=== PATIENT | male | born 1940 | race Caucasian/White ===

== ENCOUNTER → 2017-02-10 | Outpatient (CLI) | payer OTHER ==
[~2017-02-10] MED LIST: ASPCH81; CLOP1TAB15 PO; CRS20 PO; ISOS60TA25 PO; LISI-725 PO; METO50TA16 PO
[2017-02-10 12:31] LABS: BASO % 0.9 %; BASO ABS # 0.04 K/uL (0-0.2); COMPLETE YES; EOS % 3.2 %; HEMATOCRIT 43.7 % (42-52); LYMPH % 23.4 %; LYMPH ABS # 1.01 K/uL (1.2-3.4); MEAN CELL VOLUME 94.6 fL (80-100); MEAN CORPUSCULAR HEMOGLOBIN 32.7 pg (25-34); MEAN CORPUSCULAR HGB CONC 34.6 g/dl (32-36); MEAN PLATELET VOLUME 9.5 fL (7.4-10.4); MONO % 10.9 %; NEUT % 61.6 %; PLATELET COUNT 155 K/uL (130-400); RED BLOOD COUNT 4.62 M/uL (4.7-6.1); WHITE BLOOD COUNT 4.32 K/uL (4.8-10.8)
[2017-02-10 12:55] LABS: ALT/SGPT 43 U/L (12-78); BLOOD UREA NITROGEN 15 mg/dl (7-18); BUN/CREATININE RATIO 14.8 (10-20); CALCIUM 9.3 mg/dl (8.5-10.1); CARBON DIOXIDE 28 mmol/L (21-32); CHLORIDE 106 mmol/L (98-107); CHOLESTEROL 133 mg/dl (0-200); GLUCOSE 103 mg/dl (70-99); POTASSIUM 4.5 mmol/L (3.5-5.1); SODIUM 141 mmol/L (136-145); TRIGLYCERIDES 111 mg/dl (0-150); VERY LOW DENSITY LIPOPROT CALC 22 mg/dl
[2017-02-10 12:59] LABS: ALKALINE PHOSPHATASE 70 U/L (45-117); AST/SGOT 27 U/L (15-37); CHOLESTEROL/HDL RATIO 2.7; HDL CHOLESTEROL 49 mg/dl; LDL CHOLESTEROL CALCULATED 62 mg/dl
[2017-02-10 13:14] LABS: ESTIMATED AVERAGE GLUCOSE 123 mg/dl; HA1C FLAG Normal (Normal)
== END ==
LOC: C.LABPVFM 09:34
PROVIDERS: ATTEND Family Medicine
DX: I10 Essential (primary) hypertension (principal); E78.5 Hyperlipidemia, unspecified; R73.01 Impaired fasting glucose; I25.10 Atherosclerotic heart disease of native coronary artery without angina pectoris; C61 Malignant neoplasm of prostate

== ENCOUNTER → 2017-03-05 | Outpatient (CLI) | payer OTHER ==
--- NOTE | 2017-03-05 10:37 | DIAGNOSTIC IMAGING REPORT ---
KUB CLINICAL HISTORY: N20.1 Ureteral [id number] Prostate [id number] [id number] COMPARISON STUDY: 04/11/2014 FINDINGS: There is no pathologic bowel dilatation. There are faint calcifications project over the left renal shadow suspicious for calculi. Pelvic basin calcifications remain unchanged the prior study and likely represent phleboliths. IMPRESSION: 1. Left-sided nephrolithiasis 2. No evidence of pathologic bowel dilatation Electronically signed by: Riaz Muñoz M.D. 03/05/2017 10:36 AM Dictated Date/Time: 03/05/2017 10:35 AM
== END | disposition home or self-care (01) ==
LOC: C.RAD 09:59
PROVIDERS: ATTEND Urology
DX: N20.0 Calculus of kidney (principal); N20.1 Calculus of ureter; C61 Malignant neoplasm of prostate

== ENCOUNTER → 2018-01-27 | Outpatient (CLI) | payer OTHER ==
[2018-01-27 13:07] LABS: ALBUMIN 3.9 gm/dl (3.4-5.0); ALT/SGPT 70 U/L (12-78); AST/SGOT 39 U/L (15-37); BLOOD UREA NITROGEN 17 mg/dl (7-18); CALCIUM 9.2 mg/dl (8.5-10.1); CARBON DIOXIDE 28 mmol/L (21-32); CHOLESTEROL 129 mg/dl (0-200); CREATININE 1.05 mg/dl (0.60-1.40); GLUCOSE 103 mg/dl (70-99); POTASSIUM 4.3 mmol/L (3.5-5.1); SODIUM 139 mmol/L (136-145)
[2018-01-27 13:10] LABS: ALKALINE PHOSPHATASE 66 U/L (45-117); LDL CHOLESTEROL CALCULATED 59 mg/dl; TOTAL PROTEIN 7.9 gm/dl (6.4-8.2)
[2018-01-27 13:44] LABS: HEMOGLOBIN A1C 6.1 % (4.5-5.6)
== END | disposition home or self-care (01) ==
LOC: C.LABPVFM 09:15
PROVIDERS: ATTEND Family Medicine
DX: Z01.818 Encounter for other preprocedural examination (principal); I10 Essential (primary) hypertension; E78.5 Hyperlipidemia, unspecified; R73.01 Impaired fasting glucose

== ENCOUNTER → 2018-07-21 | Outpatient (CLI) | payer OTHER ==
[2018-07-21 12:53] LABS: BASO % 0.5 %; BASO ABS # 0.02 K/uL (0-0.2); EOS % 2.5 %; HEMATOCRIT 41.9 % (42-52); HEMOGLOBIN 14.1 g/dL (14.0-18.0); IG# 0.01 K/uL (0.00-0.02); LYMPH % 27.6 %; LYMPH ABS # 1.09 K/uL (1.2-3.4); MEAN CELL VOLUME 96.5 fL (80-100); MEAN CORPUSCULAR HEMOGLOBIN 32.5 pg (25-34); MEAN CORPUSCULAR HGB CONC 33.7 g/dl (32-36); MEAN PLATELET VOLUME 10.1 fL (7.4-10.4); MONO % 9.6 %; MONO ABS # 0.38 K/uL (0.11-0.59); NEUT % 59.5 %; NEUT ABS # 2.35 K/uL (1.4-6.5); PLATELET COUNT 156 K/uL (130-400); RED CELL DISTRIBUTION WIDTH CV 13.4 % (11.5-14.5); RED CELL DISTRIBUTION WIDTH SD 47.8 fL (36.4-46.3); WHITE BLOOD COUNT 3.95 K/uL (4.8-10.8)
[2018-07-21 13:22] LABS: ALBUMIN 3.8 gm/dl (3.4-5.0); ALKALINE PHOSPHATASE 61 U/L (45-117); ALT/SGPT 40 U/L (12-78); AST/SGOT 29 U/L (15-37); BLOOD UREA NITROGEN 13 mg/dl (7-18); CALCIUM 9.3 mg/dl (8.5-10.1); CARBON DIOXIDE 28 mmol/L (21-32); CHOLESTEROL 118 mg/dl (0-200); CREATININE 1.03 mg/dl (0.60-1.40); GLUCOSE 106 mg/dl (70-99); LDL CHOLESTEROL CALCULATED 55 mg/dl; POTASSIUM 4.4 mmol/L (3.5-5.1); SODIUM 140 mmol/L (136-145); TOTAL PROTEIN 7.6 gm/dl (6.4-8.2)
== END | disposition home or self-care (01) ==
LOC: C.LABPVFM 09:14
PROVIDERS: ATTEND Family Medicine
DX: I10 Essential (primary) hypertension (principal); E78.5 Hyperlipidemia, unspecified; R73.01 Impaired fasting glucose; G62.9 Polyneuropathy, unspecified

== ENCOUNTER 2024-02-13 11:46 | Inpatient (IN) ==
[2024-02-13 12:33] LABS: Basophils # (auto) 0.04 K/uL (0.00-0.20); Basophils % (auto) 0.8 %; Eosinophils # (auto) 0.11 K/uL (0.00-0.50); Eosinophils % (auto) 2.1 %; Hematocrit (blood only) 38.4 % (42.0-52.0); Immature Granulocytes # (auto) 0.01 K/uL (0.01-0.20); Immature Granulocytes % (auto) 0.2 %; Lymphocytes # (auto) 0.94 K/uL (1.20-3.40); Lymphocytes % (auto) 17.9 %; Mean Corpuscular Hemoglobin 31.4 pg (25.0-34.0); Mean Corpuscular Hgb Conc 33.9 g/dL (32.0-36.0); Mean Corpuscular Volume 92.8 fL (80.0-100.0); Mean Platelet Volume 9.7 fL (9.4-12.4); Monocytes # (auto) 0.37 K/uL (0.11-0.59); Neutrophils # (auto) 3.78 K/uL (1.40-6.50); Platelet Count 163 K/uL (130-400); RDW Coefficient of Variation 13.4 % (11.5-14.5); RDW Standard Deviation 45.6 fL (36.4-46.3); Red Blood Count 4.14 M/uL (4.70-6.10); White Blood Count 5.25 K/ul (4.8-10.8)
[2024-02-13 12:47] LABS: Albumin Globulin Ratio 1.4 (0.9-2); Albumin Level 4.2 gm/dl (3.4-5.0); Bilirubin,Total 0.5 mg/dl (0.2-1.0); Calcium 9.4 mg/dl (8.6-10.3); Est GFR (African American) 84.9 ml/min; Est GFR (Non-African American) 73.2 ml/min; Globulin 2.9 gm/dl (2.5-4.0); Potassium 4.6 mmol/L (3.5-5.1); Total Protein 7.1 gm/dl (6.0-8.3)
--- NOTE | 2024-02-13 12:47 | Emergency Department Note ---
Impression & Plan Complete heart block, PADRON (dyspnea on exertion), Elevated troponin ED Provider Note NAME: NANCY JONES AGE: 83 SEX: M : 1940 ARRIVES VIA: Walk-In INFORMANT: [Patient] ED PROVIDER(S): [Cooper Monahan MD] CHIEF COMPLAINT: Arrhythmia HISTORY OF PRESENT ILLNESS: The patient is an 83-year-old male who was at his doctor's office today for a routine visit. He was thought to be in heart block and referred to the ED for a workup. The patient does admit to occasional dyspnea when he walks too long. He does not have chest pain. There has been no cough or congestion. No abdominal pain. He does not feel any palpitations. Of note, I was able to obtain a copy of the ECG done outpatient. The patient did have an episode of complete heart block on the ECG PMHx/PSHx/Social Hx: See Below PHYSICAL EXAM: GENERAL: Patient is in no acute distress. HEENT: No acute trauma, normocephalic atraumatic, mucous membranes moist, no nasal congestion. NECK: No stridor, no adenopathy, no meningismus, trachea is midline. LUNGS: Clear to auscultation bilaterally, no wheeze, no rhonchi, breath sounds equal. HEART: 2/6 systolic murmur, regular rate and rhythm. ABDOMEN: Soft, nontender, no peritonitis. EXTREMITIES: No cyanosis, full range of motion of all the joints without pain or difficulty. Mild bilateral pedal edema. NEUROLOGIC: Oriented x 3, no acute motor or sensory deficits, no focal weakness. SKIN: No jaundice, no diaphoresis. DIFFERENTIAL DIAGNOSIS: Dysrhythmia, heart block, electrolyte imbalance, anemia, among others. EMERGENCY DEPARTMENT PROCEDURES: MEDICAL DECISION MAKING: There is no leukocytosis. A very mild anemia was seen. There was a normal platelet count. No renal failure or significant electrolyte abnormality. No evidence for pancreatitis. The patient appeared to be in a euthyroid state. Lyme disease testing was negative. ECG here showed a sinus rhythm with a long first-degree AV block. ECG from the outpatient setting did show an episode of complete heart block. Cardiac enzyme testing x 1 is slightly elevated, this troponin elevation could be secondary to mismatch or cardiac injury. Chest x- ray did not show mediastinal widening, pneumonia or pneumothorax. The patient was asymptomatic during my evaluation. He was resting comfortably. I did speak with cardiology, the patient will be hospitalized for monitoring and potential a pacemaker if not improving with holding his beta-[place]. Patient is aware of the need for a hospital stay, case management was consulted, the on-call hospitalist was consulted. Prior/Outside records/notes reviewed: Today's family practice note discussing his chronic issues and the concerns for heart block. ECG per my interpretation: Indication was arrhythmia. The ECG shows a sinus rhythm with a long first-degree AV block. The rate is 61. LVH is present. There is an old inferior infarct present. No acute ST elevation, no PVCs. The QTc is 422. Continuous Cardiac Monitoring per my interpretation: An order was placed for continuous cardiac monitoring. The monitor shows a rate of 62 with sinus rhythm with a first-degree block. Imaging/x-ray results per my interpretation: Chest x-ray does not show mediastinal widening, pneumonia or pneumothorax. Chronic Medical/Social conditions affecting care: Advanced age. Care/Management discussed with: Cardiology-Dr. Nelson, case management and the on-call hospitalist. Level of care consideration(s): After review of the information above and other included data: --I believe the patient requires escalation of care to admission DISPOSITION: Admission with cardiology consult Past Med/Surg History Medical History Right flank pain Aortic valve sclerosis Keratin granuloma Surgical History History of dental surgery History of cataract surgery Family History Mother Stroke Hypertension Father Malignant neoplasm of brain Sister Cerebral aneurysm Other Breast cancer Denies family history of Ovarian cancer Prostate cancer Myocardial infarction Colorectal cancer Social History Smoking Status: Never smoker Second Hand Exposure: No; Do You Dip or Chew Tobacco: No; Hx Alcohol Use: No Hx Substance Use: No Preferred Language: Chilean Communication Ability: Effective Visual Impairment: No Limitations Hearing Ability: Hard of Hearing Beliefs That Will Affect Care: None marital status: Single Current Living Situation: Alone current occupational status: retired How many Children do You have: 0 Feels Safe at Home: Yes Childhood Exposure to Second-Hand Smoke: Yes Diet: regular caffeine: Yes Dental Care, Regularly: No Physical Activity Frequency: Daily Seatbelt Use: sometimes Sunscreen Use: No Allergies Allergies Allergy/AdvReac Type Severity Reaction Status Date / Time bee venom protein (honey bee) Allergy Severe difficulty Verified 02/13/24 08:32 breathing Home Meds Home Medications Medication Instructions Recorded Confirmed clopidogrel 75 mg tablet 75 mg PO QDL #90 tabs 07/20/19 02/13/24 isosorbide mononitrate 60 mg 60 mg PO QAM #90 tabs 07/20/19 02/13/24 tablet,extended release 24 hr lisinopril 20 mg tablet 20 mg PO QDL #90 tabs 07/20/19 02/13/24 metoprolol tartrate 50 mg tablet 50 mg PO BID #180 tabs 07/20/19 02/13/24 nitroglycerin 0.4 mg sublingual 0.4 mg sublingual Q5M PRN chest 07/20/19 02/13/24 tablet pain #1 tab rosuvastatin 20 mg tablet 20 mg PO HS #90 tabs 07/20/19 02/13/24 aspirin 81 mg tablet,delayed 81 mg PO QAM 01/26/21 02/13/24 release Previous Rx's Medication Instructions Recorded naproxen 250 mg tablet 250 mg PO BID PRN pain #60 tabs 08/15/23 gabapentin 300 mg capsule 300 mg PO TID #270 caps 10/13/23 Results & Data (ED) Vital Signs Vital Signs - 24 hr 02/13/24 11:53 02/13/24 12:17 02/13/24 12:27 Temperature 36.4 C L Temperature Source Temporal Artery Scan Pulse Rate 55 L 62 63 Pulse Rate [Apical] Pulse Rhythm Regular Respiratory Rate 16 20 Respiratory Effort / Characteristics Respiratory Depth Respiratory Pattern Blood Pressure 166/75 H Blood Pressure [Right Arm] Blood Pressure Mean 105 Blood Pressure Mean [Right Arm] Pulse Oximetry 95 94 Oxygen Delivery Method Room Air Room Air Sepsis Recent Fever Within 48 Hours No Sepsis New/Unexplained Change in Mental Status No Sepsis Action Taken by Nursing No Action Required 02/13/24 13:00 Temperature Temperature Source Pulse Rate Pulse Rate [Apical] 58 L Pulse Rhythm Respiratory Rate 16 Respiratory Effort / Characteristics Non-Labored Spontaneous Respiratory Depth Normal Respiratory Pattern Regular Blood Pressure Blood Pressure [Right Arm] 143/78 H Blood Pressure Mean Blood Pressure Mean [Right Arm] 99 Pulse Oximetry 94 Oxygen Delivery Method Room Air Sepsis Recent Fever Within 48 Hours Sepsis New/Unexplained Change in Mental Status Sepsis Action Taken by Custodial Medications Current Medication List: was personally reviewed by me Laboratory Data Attestation: I reviewed the patient's lab results. 02/13/24 12:05 02/13/24 12:05 Lab Results 02/13/24 02/13/24 02/13/24 Range/Units 12:05 14:01 14:05 WBC 5.25 (4.8-10.8) K/ul RBC 4.14 L (4.70-6.10) M/uL Hgb 13.0 L (14.0-18.0) g/dl Hct 38.4 L (42.0-52.0) % MCV 92.8 (80.0-100.0) fL MCH 31.4 (25.0-34.0) pg MCHC 33.9 (32.0-36.0) g/dL RDW Std Deviation 45.6 (36.4-46.3) fL RDW Coeff of Tanesha 13.4 (11.5-14.5) % Plt Count 163 (130-400) K/uL MPV 9.7 (9.4-12.4) fL Immature Gran % (Auto) 0.2 % Neut % (Auto) 72.0 % Lymph % (Auto) 17.9 % [place] % (Auto) 7.0 % Eos % (Auto) 2.1 % Baso % (Auto) 0.8 % Neut # (Auto) 3.78 (1.40-6.50) K/uL Lymph # (Auto) 0.94 L (1.20-3.40) K/uL [place] # (Auto) 0.37 (0.11-0.59) K/uL Eos # (Auto) 0.11 (0.00-0.50) K/uL Baso # (Auto) 0.04 (0.00-0.20) K/uL Immature Gran # (Auto) 0.01 (0.01-0.20) K/uL Sodium 138 (136-145) mmol/L Potassium 4.6 (3.5-5.1) mmol/L Chloride 105 (98-107) mmol/L Carbon Dioxide 27 (21-32) mmol/L Anion Gap 6 (3-11) BUN 19 (6-23) mg/dl Creatinine 0.95 (0.6-1.4) mg/dl Est Cr Clr Drug Dosing 70.0 ml/min Est GFR ( Amer) 84.9 ml/min Est GFR (Non-Af Amer) 73.2 ml/min BUN/Creatinine Ratio 20.0 (10-20) Glucose 107 H (70-99(Fasting)) mg/dl Calcium 9.4 (8.6-10.3) mg/dl Magnesium 1.8 (1.7-2.4) mg/dl Total Bilirubin 0.5 (0.2-1.0) mg/dl AST 24 (13-39) U/L ALT 24 (7-52) U/L Alkaline Phosphatase 58 (34-104) U/L Troponin I High Sens 31.7 H 32.1 H (0-20) pg/ml Total Protein 7.1 (6.0-8.3) gm/dl Albumin 4.2 (3.4-5.0) gm/dl Globulin 2.9 (2.5-4.0) gm/dl Albumin/Globulin Ratio 1.4 (0.9-2) Lipase 11 (11-82) U/L TSH 2.308 (0.300-4.500) uIu/ml Lyme Disease Screen Negative (Negative) Administered Medications Discontinued Medications Magnesium Sulfate/Dextrose (Magnesium Sulfate / D5w) 1 gm in 100 mls @ 50 mls/hr IV ONE ONE Stop: 02/13/24 17:03 Last Admin: 02/13/24 15:54 Dose: 50 mls/hr Documented By: QUANG Imaging Data Radiologist's Impression: Chest X-Ray 02/13/24 11:58 XR chest 1V portable CLINICAL HISTORY: Chest pain, nonspecific COMPARISON STUDY: Chest radiograph May 01, 2013. FINDINGS: Lung volumes are normal. There is no pneumothorax or pleural effusion. There is no consolidation. Moderate cardiomegaly. Pulmonary vascularity is within normal limits. IMPRESSION: No acute cardiopulmonary findings. Cardiomegaly. No evidence for overt pulmonary edema. ACT 112: Negative or not required by law. Electronically signed by: Vinay Snider M.D. 02/13/2024 12:52 PM Discharge Plan Visit Data Chief Complaint: Arrhythmia/Palpitations Stated Complaint: HEART ISSUES- WAS JUST SEEN FOR PHY DOC REF ED Provider: Cooper Monahan Discharge Problem: Complete heart block, PADRON (dyspnea on exertion), Elevated troponin Patient Disposition: Admitted As Inpatient Condition: Fair Discharge Instructions Interventions: ED Discharge Assessment Last Done: 02/13/24 16:55
--- NOTE | 2024-02-13 12:53 | XRay Report ---
XR chest 1V portable CLINICAL HISTORY: Chest pain, nonspecific COMPARISON STUDY: Chest radiograph May 01, 2013. FINDINGS: Lung volumes are normal. There is no pneumothorax or pleural effusion. There is no consolid ation. Moderate cardiomegaly. Pulmonary vascularity is within normal limits. IMPRESSION: No acute cardiopulmonary findings. Cardiomegaly. No evidence for overt pulmonary edema. ACT 112: Negative or not required by law. Electronically signed by: Vinay Snider M.D. 02/13/2024 12:52 PM
[2024-02-13 12:54] LABS: Troponin I High Sensitivity 31.7 pg/ml (0-20)
[2024-02-13 12:56] LABS: Magnesium 1.8 mg/dl (1.7-2.4)
[2024-02-13 13:10] LABS: Thyroid Stimulating Hormone 2.308 uIu/ml (0.300-4.500)
--- NOTE | 2024-02-13 14:16 | Cardiology Consultation ---
Date of Consultation February 13, 2024 Assessment & Plan (1) Complete heart block by electrocardiogram: (2) Dyspnea on exertion: (3) CAD (coronary artery disease): (4) Aortic stenosis: (5) Carotid artery stenosis: Plan (1) Complete heart block by electrocardiogram: -Patient with findings of asymptomatic intermittent complete heart block. EKG performed at [facility] dated 02/13/2024 at 8:18 AM reveals complete heart block noted AV disassociation, ventricular rhythm in the 40s, with offset to sinus bradycardia with long first-degree AV block demonstrated in the final 2 beats of the rhythm strip. -Repeat EKG on arrival to the emergency room performed at 12 noon today revealed sinus rhythm at 61 bpm with long first-degree AV block, VA interval 318 ms. -Most recent EKG before that dates back to 07/18/2021 as an outpatient revealing sinus rhythm at 61 bpm with first-degree AV block, VA interval 280 ms, with 1 noted PVC. -Pt hemodynamically stable and asymptomatic. -Admit to the telemetry floor for ongoing monitoring. Treatment with metoprolol tartrate 50 mg twice daily which he has taken on a chronic basis for years will be held. -Proceed with Lyme screen. -Future considerations include possible dual-chamber permanent pacemaker. (2) Dyspnea on exertion: -Patient with longstanding history of exertional angina which has been controlled on medications for years. He does note however dyspnea and exertion with walking [address] Most recent echocardiogram performed in July, revealed moderate aortic valve stenosis. Will update transthoracic echocardiogram. (3) CAD (coronary artery disease): -Patient with chronic coronary disease, treated medically with past unsuccessful PCI as described. -Hold metoprolol. Continue dual antiplatelet therapy with aspirin, clopidogrel, isosorbide mononitrate 60 mg daily, lisinopril 20 mg daily, rosuvastatin 20 mg daily (4) Aortic stenosis: -Repeat echo as noted above (5) Carotid artery stenosis: -Continue chronic dual antiplatelet therapy, high intensity statin therapy. Case discussed with Dr Monahan for the purpose of coordination of care. Dr Fernando to be assuming inpatient service after 5 pm on 02/13/24 and will be rounding this weekend. History of Present Illness History of Present Illness Mr Fitzpatrick is an 83 year old male seen in cardiology consultation per the request of Dr Monahan for the evaluation of bradycardia. Patient is accompanied by his niece, Ryan. Patient is well-known to the undersigned as I have followed him as an outpatient for years. He states that he presented for a routine wellness visit with Dr. Alvares of [facility] today without any acute complaints. On physical exam he was noted to be bradycardic. An EKG was performed on 02/13/2024 at 8:18 AM that revealed third-degree heart block with ventricular rate of 43 bpm with offset to sinus bradycardia with a long first-degree AV block.. Patient was asymptomatic at that time. He had since been referred to the emergency department. Telemetry and EKG at present upon arrival to the emergency room reveal sinus bradycardia in the 50s with long first-degree AV block, VA interval 318 ms. Per my discussion with the patient he denies any chest discomfort, subjective palpitations, lightheadedness, dizziness, or near syncope. He states that he walks about a block to religion and feels short of breath when he performs this walk but that is relatively unchanged over the last few months. He does spend time outdoors including at a family camp and has had a family member who had been quite ill previously with a tickborne illness. The patient denies any known tick bites recently or rashes. History: 1.History of chronic coronary heart disease, stable exertional angina pattern, most recent cardiac catheterization August, at that time he was found to have 100% occlusion of the first obtuse marginal and a 95% occlusion of the right posterior lateral branch, 50% stenosis the circumflex, PCI had been attempted to the occluded obtuse marginal branch, but was not successful and therefore he has been treated medically in the meantime 2.Bilateral carotid disease, 100% (silent) right internal carotid artery stenosis, moderate left internal carotid artery stenosis -Most recent carotid duplex performed 2022 revealed redemonstration of the occlusion of the right internal carotid artery, and less than 50% stenosis of the left internal carotid artery, follows with [facility], ongoing medical therapy recommended 3.Dyslipidemia, well controlled on current statin therapy 4.Moderate aortic stenosis, outpatient echocardiogram July,, moderate aortic root dilatation, 4.4 cm, mild proximal ascending aorta dilatation 4.2 cm 5.Hypertension Allergies Allergy/AdvReac Type Severity Reaction Status Date / Time bee venom protein (honey bee) Allergy Severe difficulty Verified 02/13/24 08:32 breathing Home Medications Medication Instructions Recorded Confirmed Type clopidogrel 75 mg tablet 75 mg PO QDL #90 tabs 07/20/19 02/13/24 History isosorbide mononitrate 60 mg 60 mg PO QAM #90 tabs 07/20/19 02/13/24 History tablet,extended release 24 hr lisinopril 20 mg tablet 20 mg PO QDL #90 tabs 07/20/19 02/13/24 History metoprolol tartrate 50 mg tablet 50 mg PO BID #180 tabs 07/20/19 02/13/24 History nitroglycerin 0.4 mg sublingual 0.4 mg sublingual Q5M PRN chest 07/20/19 02/13/24 History tablet pain #1 tab rosuvastatin 20 mg tablet 20 mg PO HS #90 tabs 07/20/19 02/13/24 History aspirin 81 mg tablet,delayed 81 mg PO QAM 01/26/21 02/13/24 History release naproxen 250 mg tablet 250 mg PO BID PRN pain #60 tabs 08/15/23 02/13/24 Rx gabapentin 300 mg capsule 300 mg PO TID #270 caps 10/13/23 02/13/24 Rx Patient History Medical History (Updated 02/13/24 @ 14:27 by Thomas Nelson DO) Right flank pain Aortic valve sclerosis Keratin granuloma Surgical History History of dental surgery History of cataract surgery Family History Mother Stroke Hypertension Father Malignant neoplasm of brain Sister Cerebral aneurysm Other Breast cancer Denies family history of Ovarian cancer Prostate cancer Myocardial infarction Colorectal cancer Social History Smoking Status: Never smoker Second Hand Exposure: No; Do You Dip or Chew Tobacco: No; Hx Alcohol Use: No Hx Substance Use: No Preferred Language: Frisian Communication Ability: Effective Visual Impairment: No Limitations Hearing Ability: Hard of Hearing Beliefs That Will Affect Care: None marital status: Single Current Living Situation: Alone current occupational status: retired How many Children do You have: 0 Feels Safe at Home: Yes Childhood Exposure to Second-Hand Smoke: Yes Diet: regular caffeine: Yes Dental Care, Regularly: No Physical Activity Frequency: Daily Seatbelt Use: sometimes Sunscreen Use: No Review of Systems Review of Systems: All systems reviewed & are unremarkable except as noted in HPI & below Physical Exam Constitutional: WD/WN, vitals as above Eyes: PERRL, conjunctivae normal, anicteric sclerae Respiratory: normal respiratory effort, lungs clear to auscultation Cardiovascular: Rate/Rhythm: regular rate and regular rhythm Heart Sounds: + murmur (1/6 systolic murmur) Extremities: no edema Gastrointestinal (Abdomen): normal bowel sounds, soft, nontender, no hepatosplenomegaly Skin: no rashes, warm and dry Neurologic: PERRL, EOMI, accommodation nl, no face palsy, no dysarthria Results & Data Vital Signs (Past 12 Hours) Vital Signs Temp Pulse Pulse Resp BP BP Pulse Ox 02/13/24 13:00 58 L 16 143/78 H 94 02/13/24 12:27 63 02/13/24 12:17 62 20 94 02/13/24 11:53 36.4 C L 55 L 16 166/75 H 95 O2 Del Method 02/13/24 13:00 Room Air 02/13/24 12:27 02/13/24 12:17 Room Air 02/13/24 11:53 Room Air Laboratory Results Cardiac Enzymes 02/13/24 Range/Units 12:05 AST 24 (13-39) U/L Troponin I High Sens 31.7 H (0-20) pg/ml CBC 02/13/24 Range/Units 12:05 WBC 5.25 (4.8-10.8) K/ul RBC 4.14 L (4.70-6.10) M/uL Hgb 13.0 L (14.0-18.0) g/dl Hct 38.4 L (42.0-52.0) % Plt Count 163 (130-400) K/uL Neut # (Auto) 3.78 (1.40-6.50) K/uL Lymph # (Auto) 0.94 L (1.20-3.40) K/uL [place] # (Auto) 0.37 (0.11-0.59) K/uL Eos # (Auto) 0.11 (0.00-0.50) K/uL Baso # (Auto) 0.04 (0.00-0.20) K/uL Comprehensive Metabolic Panel 02/13/24 Range/Units 12:05 Sodium 138 (136-145) mmol/L Potassium 4.6 (3.5-5.1) mmol/L Chloride 105 (98-107) mmol/L Carbon Dioxide 27 (21-32) mmol/L BUN 19 (6-23) mg/dl Creatinine 0.95 (0.6-1.4) mg/dl Glucose 107 H (70-99(Fasting)) mg/dl Calcium 9.4 (8.6-10.3) mg/dl AST 24 (13-39) U/L ALT 24 (7-52) U/L Alkaline Phosphatase 58 (34-104) U/L Total Protein 7.1 (6.0-8.3) gm/dl Albumin 4.2 (3.4-5.0) gm/dl Intake and Output 02/12/24 02/13/24 02/13/24 22:59 06:59 14:59 Other: Weight 100.7 kg Weight Measurement Method Chair Scale Patient Weight 02/14/24 06:59 Weight 100.7 kg
--- NOTE | 2024-02-13 14:43 | History & Physical Report ---
Date of Service February 13, 2024 Assessment & Plan (1) Complete heart block by electrocardiogram: Plan: EKG at outpatient appointment at [facility] revealed complete heart block with AV disassociation and ventricular rhythm in the 40s Stat echocardiogram ordered, pending EKG on arrival revealed sinus rhythm with first-degree AV block at 61 bpm; QTc 422 Clinically, patient's only symptom has been PADRON x 2-3 months He also notes that he recently started 3 new supplements from his chiropractor CXR revealed cardiomegaly; no acute findings Elevated troponin at 31.7-->32.1 on arrival TSH WNL Lyme ordered, pending Cardiology consulted Considering possible dual-chamber permanent pacemaker Continuous telemetry monitoring A.m. CBC, BMP, troponin (2) CAD (coronary artery disease): Plan: Chronic; most recent cardiac cath in August 2010; history of unsuccessful PCI Hold metoprolol per cardiology Continue aspirin, Plavix, isosorbide mononitrate, lisinopril, and rosuvastatin (3) Type 2 diabetes mellitus with hyperlipidemia: Plan: Patient denies ever having T2DM; last A1c at 6.5% on 08/15/2023 Glucose 107 on admission Not currently on T2DM medications Can continue with AHA diet for now (4) Aortic stenosis: Plan: Chronic; noted Plan Disposition: Admit to PCU telemetry DNR/DNI AHA diet VTE PPx: Lovenox 40 mg SQ q24h History of Present Illness Chief Complaint: Heart block Primary Care Provider: Diony Alvares DO Isaiah is a pleasant 83-year-old male with PMH of CAD, prostate cancer, nephrolithiasis, T2DM, aortic stenosis, arthritis, and complete heart block. He presented from his annual checkup at [facility] for third-degree heart block on his EKG on 02/12. Patient denies any recent chest pain. He does note that he has been having intermittent PADRON over the past 2-3 months, that he [place] while walking [place]. No SOB at rest. Not positional or worse when lying flat. He does note that he uses a cane for ambulation at night. No supplemental oxygen at home. No CPAP. Patient reports that he took all of his regular medications today, and that there have been no recent change in medications, but that he recently started 3 new supplements on Friday 02/09. He was at the chiropractor and started: Azeri black radish, Ligaplex, and Baswellini complex. Patient denies past medical history of diabetes. He does note that his feet hurt very often, but this has been ongoing. He also notes he had a nosebleed yesterday, as well as 1 to 2 weeks ago. No other complaints at time admission. Patient is hypertensive at 143/78, and mildly bradycardic at 58 bpm at time of admission; vitals otherwise stable. ED course: ROS: Patient endorses PADRON and pain in his feet (chronic) Patient denies fever, chills, night sweats, dizziness, lightheadedness, headache, change in vision, chest pain, left arm/jaw pain, cough, SOB at rest, chest palpitations, abdominal pain, N/V/D, urinary symptoms, or numbness/tingling in the arms or legs. Reconfirmed with the patient's niece/POA (Joelle) that the patient is DNR/DNI. Allergies Allergy/AdvReac Type Severity Reaction Status Date / Time bee venom protein (honey bee) Allergy Severe difficulty Verified 02/13/24 08:32 breathing Home Medications Medication Instructions Recorded Confirmed Type clopidogrel 75 mg tablet 75 mg PO QDL #90 tabs 07/20/19 02/13/24 History isosorbide mononitrate 60 mg 60 mg PO QAM #90 tabs 07/20/19 02/13/24 History tablet,extended release 24 hr lisinopril 20 mg tablet 20 mg PO QDL #90 tabs 07/20/19 02/13/24 History metoprolol tartrate 50 mg tablet 50 mg PO BID #180 tabs 07/20/19 02/13/24 History nitroglycerin 0.4 mg sublingual 0.4 mg sublingual Q5M PRN chest 07/20/19 02/13/24 History tablet pain #1 tab rosuvastatin 20 mg tablet 20 mg PO HS #90 tabs 07/20/19 02/13/24 History aspirin 81 mg tablet,delayed 81 mg PO QAM 01/26/21 02/13/24 History release naproxen 250 mg tablet 250 mg PO BID PRN pain #60 tabs 08/15/23 02/13/24 Rx gabapentin 300 mg capsule 300 mg PO TID #270 caps 10/13/23 02/13/24 Rx Past Med/Surg History Medical History Right flank pain Aortic valve sclerosis Keratin granuloma Surgical History History of dental surgery History of cataract surgery Family History Mother Stroke Hypertension Father Malignant neoplasm of brain Sister Cerebral aneurysm Other Breast cancer Denies family history of Ovarian cancer Prostate cancer Myocardial infarction Colorectal cancer Social History Smoking Status: Never smoker Second Hand Exposure: No; Do You Dip or Chew Tobacco: No; Hx Alcohol Use: No Hx Substance Use: No Preferred Language: Chinese Communication Ability: Effective Visual Impairment: No Limitations Hearing Ability: Hard of Hearing Lock Stitch Channeler Required: No Beliefs That Will Affect Care: None marital status: Single Current Living Situation: Alone current occupational status: retired How many Children do You have: 0 Other Information That Helps Us Care for You: No Feels Safe at Home: Yes Childhood Exposure to Second-Hand Smoke: Yes Diet: regular caffeine: Yes Dental Care, Regularly: No Physical Activity Frequency: Daily Seatbelt Use: sometimes Sunscreen Use: No Assistive Devices: None Review of Systems Review of Systems: See HPI above Physical Exam Physical Exam: General: no acute distress; non-toxic appearing; well-nourished; cooperative HEENT: normocephalic, atraumatic; no scleral icterus; PERRLA w/ EOMs intact; moist mucus membrane; vision and hearing grossly intact Neck: supple; no lymphadenopathy; trachea midline Skin: warm, dry without signs of tenting; no cyanosis; no rashes, bruising, lesions, or erythema noted CV: chest wall NTP; bradycardic in the 50-60 bpm range; 5/6 systolic ejection murmur auscultated at the second ICS MCL that radiates up to the carotids bilaterally; pulses intact and symmetric at radial, DP, and PT Lungs: no acute respiratory distress; symmetrical chest wall expansion; clear breath sounds across all lung newsome w/o adventitious sounds; no wheezing ABD: Soft, NTP; BS present; no rebound/guarding; moderate distention secondary to body habitus MSK: no tics or fasciculations; no edema noted in the LEs b/l, nonerythematous; patient demonstrates ability to wiggle toes Neuro: A&Ox3; normal mood and affect; fluent speech; no focal deficits; sensation grossly intact in the LEs b/l Results & Data Results & Data Vital Signs (Past 12 Hours) Vital Signs Temp Pulse Pulse Resp BP BP Pulse Ox 02/13/24 13:00 58 L 16 143/78 H 94 02/13/24 12:27 63 02/13/24 12:17 62 20 94 02/13/24 11:53 36.4 C L 55 L 16 166/75 H 95 O2 Del Method 02/13/24 13:00 Room Air 02/13/24 12:27 02/13/24 12:17 Room Air 02/13/24 11:53 Room Air Laboratory Results Abnormal lab results 02/13/24 Range/Units 12:05 RBC 4.14 L (4.70-6.10) M/uL Hgb 13.0 L (14.0-18.0) g/dl Hct 38.4 L (42.0-52.0) % Lymph # (Auto) 0.94 L (1.20-3.40) K/uL Glucose 107 H (70-99(Fasting)) mg/dl Troponin I High Sens 31.7 H (0-20) pg/ml Diagnostic Findings Chest X-Ray 02/13/24 11:58 XR chest 1V portable CLINICAL HISTORY: Chest pain, nonspecific COMPARISON STUDY: Chest radiograph May 01, 2013. FINDINGS: Lung volumes are normal. There is no pneumothorax or pleural effusion. There is no consolidation. Moderate cardiomegaly. Pulmonary vascularity is within normal limits. IMPRESSION: No acute cardiopulmonary findings. Cardiomegaly. No evidence for overt pulmonary edema. ACT 112: Negative or not required by law. Electronically signed by: Vinay Snider M.D. 02/13/2024 12:52 PM Code Status & VTE Plan Code Status DNR/DNI VTE Prophylaxis Plan VTE Prophylaxis will be ordered: Yes Supervising Physician Co-Signing Physician Notes Patient seen and examined, chart reviewed, case discussed with Romulo Bush and I agree with the assessment and plan as above except as otherwise noted Labs and images reviewed 83-year-old male admitted for intermittent complete heart block, while in ER has a third-degree heart block. Repeat EKG with first-degree AV block. Following for consideration of a pacemaker. Lyme serology is negative. High sensitive troponin is slightly elevated at 31/32 patient is without chest pain. Metoprolol has been held. . At time of bedside assessment in ER patient is heart rate is regular, bradycardic; lungs are clear, patient is normotensive at bedside and does not appear to be confused or have mentation changes.on evening reassessment he continues to be well and is reading the paper with no symptoms. Heart rate has actually improved and is approximately 6065 at time of bedside assessment. Agree with assessment and management above PG Care Time/CCT Total # of Minutes Spent Total Time Spent with Patient: Total time spent is greater than 50% in coordination of care (as documented) at patient's floor/unit and/or counseling patient: [place] [address] INT INP/OBS CARE 2/55MIN Patient Type New History Comprehensive Exam Comprehensive Medical Decision Making Moderate Complexity Diagnoses Complete heart block by electrocardiogram I44.2 CAD (coronary artery disease) I25.10 Type 2 diabetes mellitus with hyperlipidemia E11.69; E78.5 Aortic stenosis I35.0
[2024-02-13] MEDS: MAGNESIUM SULFATE / D5W 1 GM/100 ML BAG IV ONE (15:54)
[2024-02-13] MEDS ORDERED: NITROGLYCERIN SL 0.4 MG/TAB TAB SL PRN (16:55)
[2024-02-13] MEDS ORDERED: ACETAMINOPHEN 325 MG TAB PO PRN (16:55)
[2024-02-13] MEDS: ROSUVASTATIN CALCIUM 20 MG TAB PO SCH (20:58)
[2024-02-13] MEDS: GABAPENTIN 300 MG CAP PO SCH (20:58)
[2024-02-13] MEDS: ENOXAPARIN INJ 40 MG/0.4 ML SYR SQ SCH (23:14)
[2024-02-14 07:41] LABS: Basophils # (auto) 0.04 K/uL (0.00-0.20); Basophils % (auto) 0.8 %; Eosinophils # (auto) 0.15 K/uL (0.00-0.50); Eosinophils % (auto) 3.1 %; Hematocrit (blood only) 37.9 % (42.0-52.0); Hemoglobin 12.6 g/dl (14.0-18.0); Immature Granulocytes # (auto) 0.01 K/uL (0.01-0.20); Immature Granulocytes % (auto) 0.2 %; Lymphocytes # (auto) 1.08 K/uL (1.20-3.40); Lymphocytes % (auto) 22.1 %; Mean Corpuscular Hemoglobin 31.1 pg (25.0-34.0); Mean Corpuscular Hgb Conc 33.2 g/dL (32.0-36.0); Mean Corpuscular Volume 93.6 fL (80.0-100.0); Mean Platelet Volume 9.7 fL (9.4-12.4); Monocytes # (auto) 0.46 K/uL (0.11-0.59); Monocytes % (auto) 9.4 %; Neutrophils # (auto) 3.15 K/uL (1.40-6.50); Neutrophils % (auto) 64.4 %; Platelet Count 149 K/uL (130-400); RDW Coefficient of Variation 13.5 % (11.5-14.5); Red Blood Count 4.05 M/uL (4.70-6.10); White Blood Count 4.89 K/ul (4.8-10.8)
--- NOTE | 2024-02-14 08:03 | Electrocardiogram Report ---
Test Reason : Blood Pressure : / mmHG Vent. Rate : 061 BPM Atrial Rate : 061 BPM P-R Int : 318 ms QRS Dur : 084 ms QT Int : 420 ms P-R-T Axes : 007 -08 -50 degrees QTc Int : 422 ms Sinus rhythm with 1st degree A-V block Minimal voltage criteria for LVH, may be normal variant ( R in aVL ) Inferior infarct , age undetermined Abnormal ECG No previous ECGs available Confirmed by Tylor Ramos ([id number]) on 02/14/2024 8:02:59 AM Referred By: REFERRED SELF Confirmed By:Tylor Ramos
[2024-02-14 08:07] LABS: BUN Creatinine Ratio 20.4 (10-20); Creatinine Clr Calc Pharmacy 67.8 ml/min; Est GFR (African American) 81.7 ml/min; Est GFR (Non-African American) 70.5 ml/min; Magnesium 2.1 mg/dl (1.7-2.4); Potassium 4.1 mmol/L (3.5-5.1)
[2024-02-14 08:12] LABS: Troponin I High Sensitivity 30.7 pg/ml (0-20)
[2024-02-14] MEDS: ASPIRIN 81 MG ECTAB PO SCH (09:05)
[2024-02-14] MEDS: ISOSORBIDE MONO EXTENDED REL 60 MG TABCR PO SCH (09:05)
[2024-02-14] MEDS: CLOPIDOGREL BISULFATE 75 MG TAB PO SCH (11:39)
[2024-02-14] MEDS: lisinopril 20 MG TAB PO SCH (11:39)
--- NOTE | 2024-02-14 13:35 | Electrocardiogram Report ---
Test Reason : Blood Pressure : / mmHG Vent. Rate : 045 BPM Atrial Rate : 059 BPM P-R Int : 222 ms QRS Dur : 088 ms QT Int : 446 ms P-R-T Axes : 072 -11 164 degrees QTc Int : 385 ms Sinus bradycardia with 2nd degree A-V block (Mobitz I) Left ventricular hypertrophy with repolarization abnormality Inferior infarct (cited on or before 13-FEB-2024) Abnormal ECG When compared with ECG of 13-FEB-2024 12:00, (unconfirmed) T wave inversion no longer evident in Inferior leads Confirmed by Edwin Epstein ([id number]) on 02/14/2024 1:35:22 PM Referred By: REFERRED SELF Confirmed By:Edwin Epstein
--- NOTE | 2024-02-14 14:53 | Cardiology Progress Note ---
Date of Service February 14, 2024 Assessment & Plan (1) Complete heart block by electrocardiogram: (2) Dyspnea on exertion: (3) CAD (coronary artery disease): (4) Aortic stenosis: (5) Carotid artery stenosis: Plan I had a long discussion with the patient regarding the natural history and pathophysiology of complete heart block. Intermittent episodes of third-degree AV block recorded overnight. Continue to hold beta-peewee and monitor telemetry. Discussed potential need for pacemaker implantation. Patient voiced understanding. Lyme screen negative and TSH within normal limits. Recommend monitor telemetry and additional 24 hours off beta-peewee therapy. Continue other cardiovascular medications including aspirin, clopidogrel, isosorbide mononitrate, Zestril, and rosuvastatin. Admission and Anticipated Discharge Date Admission Date: February 13, 2024 Subjective 83-year-old male seen and examined at the bedside. Remains asymptomatic. Telemetry reveals sinus rhythm with a first-degree AV block, second-degree AV block Mobitz type I, and intermittent episodes of third-degree AV block with heart rate down into the 40s. Brief salvos of PSVT recorded. Outpatient metoprolol, 50 mg twice daily on hold. Patient questioning whether he can be discharged. Review of Systems Review of Systems: All systems reviewed & are unremarkable except as noted in Subjective Physical Exam Constitutional: well nourished; no acute distress Respiratory: no respiratory distress, no labored breathing and no retractions Auscultation: no crackles, no rales, no rhonchi and no wheezes Cardiovascular: Rate/Rhythm: regular rate and regular rhythm Heart Sounds: normal S1, normal S2 and + murmur (2/6 systolic ejection murmur) Vessels: no JVD and no carotid bruit Extremities: no edema Gastrointestinal (Abdomen): Inspection/Auscultation: abdomen normal to inspection and normal bowel sounds; abdomen not distended Results & Data Vital Signs (Past 12 Hours) Vital Signs Temp Pulse Pulse Resp BP Pulse Ox O2 Del Method 02/14/24 11:26 36.3 C L 99 H 18 114/74 93 Room Air 02/14/24 10:23 58 L 02/14/24 07:21 36.3 C L 61 18 187/89 H 96 Room Air 02/14/24 04:09 44 L 02/14/24 03:09 36.7 C 57 L 16 139/81 95 Room Air Laboratory Results Cardiac Enzymes 02/13/24 02/14/24 Range/Units 14:01 06:45 Troponin I High Sens 32.1 H 30.7 H (0-20) pg/ml CBC 02/14/24 Range/Units 06:45 WBC 4.89 (4.8-10.8) K/ul RBC 4.05 L (4.70-6.10) M/uL Hgb 12.6 L (14.0-18.0) g/dl Hct 37.9 L (42.0-52.0) % Plt Count 149 (130-400) K/uL Neut # (Auto) 3.15 (1.40-6.50) K/uL Lymph # (Auto) 1.08 L (1.20-3.40) K/uL [place] # (Auto) 0.46 (0.11-0.59) K/uL Eos # (Auto) 0.15 (0.00-0.50) K/uL Baso # (Auto) 0.04 (0.00-0.20) K/uL Comprehensive Metabolic Panel 02/14/24 Range/Units 06:45 Sodium 140 (136-145) mmol/L Potassium 4.1 (3.5-5.1) mmol/L Chloride 106 (98-107) mmol/L Carbon Dioxide 29 (21-32) mmol/L BUN 20 (6-23) mg/dl Creatinine 0.98 (0.6-1.4) mg/dl Glucose 102 H (70-99(Fasting)) mg/dl Calcium 9.0 (8.6-10.3) mg/dl Intake and Output 02/13/24 02/14/24 02/14/24 22:59 06:59 14:59 Intake Total 450 / 650 200 / 650 770 / 770 Balance 450 / 650 200 / 650 770 / 770 Intake: IV 100 / 100 Magnesium Sulfate / D5w 1 gm In 100 / 100 100 ml @ 50 mls/hr IV ONE ONE Rx#:[id number] Oral 350 / 550 200 / 550 770 / 770 Other: # Unmeasured Voids 1 2 3 Weight 100.7 kg Weight Measurement Method Built in [facility]
--- NOTE | 2024-02-14 19:20 | Hospitalist Progress Note ---
Date of Service February 14, 2024 Assessment & Plan (1) Complete heart block by electrocardiogram: Plan: EKG at outpatient appointment at [facility] office showed complete heart block He was relatively asymptomatic during that appointment His fatigue and PADRON over the last few weeks at home could be electrically related but uncertain Following admission his baseline rhythm is NSR with 1st degree AV block There have been episodes of Mobitz 1 2nd degree AV block as well as some brief episodes of complete AV block TSH wnl Lyme negative Echo with preserved EF and moderate Appreciate [facility] Cardiology assistance Beta peewee has been appropriately held Timing of permanent pacemaker placement to be made tomorrow by cardiology (2) CAD (coronary artery disease): Plan: Continue aspirin, Plavix, isosorbide mononitrate, lisinopril, and rosuvastatin Beta peewee on hold due to #[address] Nelson's consultation - most recent cardiac catheterization August, -- * 100% occlusion of the first obtuse marginal * 95% occlusion of the right posterior lateral branch * 50% stenosis left circumflex PCI had been attempted to the occluded obtuse marginal branch but was not successful (3) Type 2 diabetes mellitus with hyperlipidemia: Plan: last A1c - 6.5% on 08/15/2023 He is not on any T2DM medications At minimum has mild, early DM with diet control check an a1c on Friday am (4) Aortic stenosis: Plan: Moderate on echo this admission (5) Elevated troponin: Plan: peak HS trop ~30 this is likely myocardial demand ischemia in setting of #1 above no evidence of ACS (6) PADRON (dyspnea on exertion): Plan: could be related to #1 if he is in complete heart block during times of activities, walking, etc other possibility is that of his CAD CXR wnl (7) Foot pain, bilateral: Plan: suspect this is due to neuropathy he is already on gabapentin TID could consider a small dose titration OR adding low-dose cymbalta defer for now this is a chronic issue Plan VTE PPx: Lovenox 40 mg SQ q24h updated pt's niece by phone pt does not have children nor has ever been [place] corresponded with Dr Fernando from [facility] Cardiology Admission and Anticipated Discharge Date Admission Date: February 13, 2024 Subjective tele overnight - baseline rhythm NSR with 1st degree AVB some 2nd degree Mobitz 1 seen few brief episodes of 3rd degree AV block pt sitting in chair during the visit offers no complaints he feels well eating well denies any dizziness, cp, dyspnea only complaint - when he was walking to [place] in [place] from his home (1 block distance) he would "get played out" this has been occurring for a few weeks Review of Systems Review of Systems: cv - no orthopnea, edema, PND pulm - no dyspnea GI - no N/V musculo - b/l foot pain - constant, all toes b/l; numb, tingling Physical Exam Physical Exam: gen - NAD, looks well neck - no JVD mouth - MMM heart - 2/6 systolic murmur loudest RUSB; RRR, s1 s2 lungs - CTA b/l abd - soft NT ND BS+ ext - no edema, pulses 2+ b//l musculo - no abnormalities of either foot psych - forgetful with poor recall Results & Data Results & Data Vital Signs (Past 12 Hours) Vital Signs Temp Pulse Pulse Resp BP Pulse Ox O2 Del Method 02/14/24 16:06 73 02/14/24 15:39 36.4 C L 66 18 133/76 95 Room Air 02/14/24 11:26 36.3 C L 99 H 18 114/74 93 Room Air 02/14/24 10:23 58 L 02/14/24 07:21 36.3 C L 61 18 187/89 H 96 Room Air Laboratory Results Laboratory Results - last 24 hr 02/14/24 06:45 WBC 4.89 RBC 4.05 L Hgb 12.6 L Hct 37.9 L MCV 93.6 MCH 31.1 MCHC 33.2 RDW Std Deviation 46.0 RDW Coeff of Tanesha 13.5 Plt Count 149 MPV 9.7 Immature Gran % (Auto) 0.2 Neut % (Auto) 64.4 Lymph % (Auto) 22.1 [place] % (Auto) 9.4 Eos % (Auto) 3.1 Baso % (Auto) 0.8 Neut # (Auto) 3.15 Lymph # (Auto) 1.08 L [place] # (Auto) 0.46 Eos # (Auto) 0.15 Baso # (Auto) 0.04 Immature Gran # (Auto) 0.01 Sodium 140 Potassium 4.1 Chloride 106 Carbon Dioxide 29 Anion Gap 5 BUN 20 Creatinine 0.98 Est Cr Clr Drug Dosing 67.8 Est GFR ( Amer) 81.7 Est GFR (Non-Af Amer) 70.5 BUN/Creatinine Ratio 20.4 H Glucose 102 H Calcium 9.0 Magnesium 2.1 Troponin I High Sens 30.7 H PG Care Time/CCT Total # of Minutes Spent Total Time Spent with Patient: Total time spent is greater than 50% in coordination of care (as documented) at patient's floor/unit and/or counseling patient: Coding Level of Care Code 30628 SUB INP/OBS CARE 2/35MIN Diagnoses Complete heart block by electrocardiogram I44.2 CAD (coronary artery disease) I25.10 Type 2 diabetes mellitus with hyperlipidemia E11.69; E78.5 Aortic stenosis I35.0 Elevated troponin R79.89 PADRON (dyspnea on exertion) R06.09 Foot pain, bilateral M79.671; M79.672
[2024-02-15 07:19] LABS: Basophils # (auto) 0.04 K/uL (0.00-0.20); Basophils % (auto) 0.8 %; Eosinophils # (auto) 0.15 K/uL (0.00-0.50); Eosinophils % (auto) 2.9 %; Hemoglobin 13.7 g/dl (14.0-18.0); Immature Granulocytes # (auto) 0.01 K/uL (0.01-0.20); Immature Granulocytes % (auto) 0.2 %; Lymphocytes # (auto) 1.16 K/uL (1.20-3.40); Lymphocytes % (auto) 22.4 %; Mean Corpuscular Hgb Conc 32.6 g/dL (32.0-36.0); Mean Platelet Volume 9.5 fL (9.4-12.4); Monocytes # (auto) 0.47 K/uL (0.11-0.59); Monocytes % (auto) 9.1 %; Neutrophils # (auto) 3.34 K/uL (1.40-6.50); Neutrophils % (auto) 64.6 %; Platelet Count 153 K/uL (130-400); RDW Coefficient of Variation 13.5 % (11.5-14.5); RDW Standard Deviation 46.6 fL (36.4-46.3); Red Blood Count 4.42 M/uL (4.70-6.10); White Blood Count 5.17 K/ul (4.8-10.8)
[2024-02-15 07:35] LABS: BUN Creatinine Ratio 20.4 (10-20); Calcium 9.2 mg/dl (8.6-10.3); Creatinine Clr Calc Pharmacy 70.4 ml/min; Est GFR (African American) 87.1 ml/min; Est GFR (Non-African American) 75.1 ml/min; Potassium 4.2 mmol/L (3.5-5.1)
--- NOTE | 2024-02-15 12:19 | Electrocardiogram Report ---
Test Reason : Blood Pressure : / mmHG Vent. Rate : 072 BPM Atrial Rate : 072 BPM P-R Int : 276 ms QRS Dur : 090 ms QT Int : 400 ms P-R-T Axes : 024 -21 025 degrees QTc Int : 438 ms Sinus rhythm with 1st degree A-V block Voltage criteria for left ventricular hypertrophy possible Inferior infarct (cited on or before 13-FEB-2024) Abnormal ECG Confirmed by Jose Ramon Macdonald ([id number]) on 02/15/2024 12:18:35 PM Referred By: REFERRED SELF Confirmed By:Thai Macdonald
--- NOTE | 2024-02-15 12:34 | Cardiology Progress Note ---
Date of Service February 15, 2024 Assessment & Plan (1) Complete heart block by electrocardiogram: (2) Mobitz type 1 second degree AV block: (3) CAD (coronary artery disease): (4) Aortic stenosis: (5) Carotid artery stenosis: Plan I had a long discussion with the patient regarding the natural history and pathophysiology of complete heart block, and second-degree AV block Mobitz type I. Indication for nonurgent pacemaker implantation discussed. Case reviewed with electrophysiology. Outpatient pacemaker implantation will be scheduled this week. Beta-peewee therapy will remain on hold. Continue other cardiovascular medications including aspirin, clopidogrel, isosorbide mononitrate, Zestril, and rosuvastatin. Findings and recommendations discussed with patient's niece, Joelle, at length. She voiced understanding and agreement. Patient and niece will monitor for any symptoms including lightheadedness, dizziness, syncope, near syncope, or unusual shortness of breath. Instructed to return to the emergency department if patient becomes symptomatic. I spent a total of 40 minutes on the date of service in preparation, delivery, and documentation of the care provided to this patient, excluding any time spent in the performance of separately billed services. Admission and Anticipated Discharge Date Admission Date: February 13, 2024 Subjective 83-year-old male seen and examined at the bedside. Episodes of Mobitz 1 second- degree AV block overnight. No recurrent complete heart block. Remains asymptomatic. Denies chest pain, shortness of breath, lightheadedness, dizziness, syncope, or near syncope. ECG this morning demonstrating sinus rhythm with a first-degree AV block. Review of Systems Review of Systems: All systems reviewed & are unremarkable except as noted in Subjective Physical Exam Constitutional: well nourished; no acute distress Respiratory: no respiratory distress, no labored breathing and no retractions Auscultation: no crackles, no rales, no rhonchi and no wheezes Cardiovascular: Rate/Rhythm: regular rate and regular rhythm Heart Sounds: normal S1, normal S2 and + murmur (2/6 systolic ejection murmur) Vessels: no JVD and no carotid bruit Extremities: no edema Gastrointestinal (Abdomen): Inspection/Auscultation: abdomen normal to inspection and normal bowel sounds; abdomen not distended Neurologic: CN's II-XI intact bilaterally and moves all extremities; no focal motor deficits Results & Data Vital Signs (Past 12 Hours) Vital Signs Temp Pulse Pulse Resp BP Pulse Ox O2 Del Method 02/15/24 11:39 36.3 C L 73 18 106/67 95 Room Air 02/15/24 07:18 Room Air 02/15/24 07:17 36.5 C 73 18 144/80 H 94 Room Air 02/15/24 07:17 66 02/15/24 03:18 36.5 C 59 L 18 133/71 96 Room Air Laboratory Results CBC 02/15/24 Range/Units 06:55 WBC 5.17 (4.8-10.8) K/ul RBC 4.42 L (4.70-6.10) M/uL Hgb 13.7 L (14.0-18.0) g/dl Hct 42.0 (42.0-52.0) % Plt Count 153 (130-400) K/uL Neut # (Auto) 3.34 (1.40-6.50) K/uL Lymph # (Auto) 1.16 L (1.20-3.40) K/uL [place] # (Auto) 0.47 (0.11-0.59) K/uL Eos # (Auto) 0.15 (0.00-0.50) K/uL Baso # (Auto) 0.04 (0.00-0.20) K/uL Comprehensive Metabolic Panel 02/15/24 Range/Units 06:55 Sodium 141 (136-145) mmol/L Potassium 4.2 (3.5-5.1) mmol/L Chloride 107 (98-107) mmol/L Carbon Dioxide 31 (21-32) mmol/L BUN 19 (6-23) mg/dl Creatinine 0.93 (0.6-1.4) mg/dl Glucose 104 H (70-99(Fasting)) mg/dl Calcium 9.2 (8.6-10.3) mg/dl Intake and Output 02/14/24 02/15/24 02/15/24 22:59 06:59 14:59 Intake Total 200 / 970 Balance 200 / 970 Intake: Oral 200 / 970 Other: # Unmeasured Voids 1 2 Weight 97.4 kg Weight Measurement Method Built in [facility] (4) Aortic stenosis Cardiac valve disease etiology: nonrheumatic Qualified Code(s): I35.0 - Nonrheumatic aortic (valve) stenosis
--- NOTE | 2024-02-15 14:07 | Discharge Summary ---
Date of Service February 15, 2024 Admission HPI Per Admitting Provider Isaiah is a pleasant 83-year-old male with PMH of CAD, prostate cancer, nephrolithiasis, T2DM, aortic stenosis, arthritis, and complete heart block. He presented from his annual checkup at [facility] for third-degree heart block on his EKG on 02/12. Patient denies any recent chest pain. He does note that he has been having intermittent PADRON over the past 2-3 months, that he notices while [facility] [place] [facility]. No SOB at rest. Not positional or worse when lying flat. He does note that he uses a cane for ambulation at night. No supplemental oxygen at home. No CPAP. Patient reports that he took all of his regular medications today, and that there have been no recent change in medications, but that he recently started 3 new supplements on Friday 02/09. He was at the chiropractor and started: [place] black radish, Ligaplex, and Baswellini complex. Patient denies past medical history of diabetes. He does note that his feet hurt very often, but this has been ongoing. He also notes he had a nosebleed yesterday, as well as 1 to 2 weeks ago. No other complaints at time admission. Patient is hypertensive at 143/78, and mildly bradycardic at 58 bpm at time of admission; vitals otherwise stable. ED course: ROS: Patient endorses PADRON and pain in his feet (chronic) Patient denies fever, chills, night sweats, dizziness, lightheadedness, headache, change in vision, chest pain, left arm/jaw pain, cough, SOB at rest, chest palpitations, abdominal pain, N/V/D, urinary symptoms, or numbness/tingling in the arms or legs. Reconfirmed with the patient's niece/POA (Joelle) that the patient is DNR/DNI. Discharge Exam gen - NAD, looks well neck - no JVD mouth - MMM heart - 2/6 systolic murmur loudest RUSB; RRR, s1 s2 lungs - CTA b/l abd - soft NT ND BS+ ext - no edema, pulses 2+ b//l musculo - no abnormalities of either foot psych - forgetful with poor recall Discharge Data Allergies Allergy/AdvReac Type Severity Reaction Status Date / Time bee venom protein (honey bee) Allergy Severe difficulty Verified 02/13/24 08:32 breathing Consultations 02/13/24 13:42 ED Decision to Admit Stat 02/13/24 16:55 Consult Cardiology Routine Hospital Course (1) Complete heart block by electrocardiogram: EKG at outpatient appointment at [facility] office showed complete heart block He was relatively asymptomatic during that appointment His fatigue and PADRON over the last few weeks at home could be electrically related but uncertain Following admission his baseline rhythm is NSR with 1st degree AV block There have been episodes of Mobitz 1 2nd degree AV block as well as some brief episodes of complete AV block TSH wnl Lyme negative Echo with preserved EF and moderate Appreciate [employer] Cardiology assistance Beta peewee has been appropriately held Timing of permanent pacemaker placement to be made tomorrow by cardiology (2) CAD (coronary artery disease): Continue aspirin, Plavix, isosorbide mononitrate, lisinopril, and rosuvastatin Beta peewee on hold due to #[address] Nelosn's consultation - most recent cardiac catheterization August, -- * 100% occlusion of the first obtuse marginal * 95% occlusion of the right posterior lateral branch * 50% stenosis left circumflex PCI had been attempted to the occluded obtuse marginal branch but was not succes sful (3) Type 2 diabetes mellitus with hyperlipidemia: last A1c - 6.5% on 08/15/2023 He is not on any T2DM medications At minimum has mild, early DM with diet control check an a1c on Friday am (4) Aortic stenosis: Moderate on echo this admission (5) Elevated troponin: peak HS trop ~30 this is likely myocardial demand ischemia in setting of #1 above no evidence of ACS (6) PADRON (dyspnea on exertion): could be related to #1 if he is in complete heart block during times of activities, walking, etc other possibility is that of his CAD CXR wnl (7) Foot pain, bilateral: suspect this is due to neuropathy he is already on gabapentin TID could consider a small dose titration OR adding low-dose cymbalta defer for now this is a chronic issue Plan VTE PPx: Lovenox 40 mg SQ q24h updated pt's niece by phone pt does not have children nor has ever been [place] corresponded with Dr Fernando from [facility] Discharge Plan Discharge Items Reason For Visit: HEART BLOCK Condition on Discharge: Fair Follow-up/Referrals: Diony Alvares DO [Primary Care Provider] - Medications and DC Order Prescriptions: No Action gabapentin 300 mg capsule 300 mg PO TID Qty: 270 3RF naproxen 250 mg tablet 250 mg PO BID PRN (Reason: pain) Qty: 60 5RF clopidogrel 75 mg tablet 75 mg PO QDL Qty: 90 isosorbide mononitrate 60 mg tablet extended release 24 hr 60 mg PO QAM Qty: 90 metoprolol tartrate 50 mg tablet 50 mg PO BID Qty: 180 lisinopril 20 mg tablet 20 mg PO QDL Qty: 90 nitroglycerin 0.4 mg tablet, sublingual 0.4 mg SL Q5M PRN (Reason: chest pain) Qty: 1 rosuvastatin 20 mg tablet 20 mg PO HS Qty: 90 aspirin 81 mg tablet,delayed release (DR/EC) 81 mg PO QAM Admission Data Admit Date/Time: 02/13/24 14:59 Attending Provider: Bryan Bryan Admit Provider: Jose Sosa Primary Care Provider: Diony Alvares Other Providers: Jose Sosa; Thomas Nelson Coding Diagnoses Complete heart block by electrocardiogram I44.2 CAD (coronary artery disease) I25.10 Type 2 diabetes mellitus with hyperlipidemia E11.69; E78.5 Nonrheumatic aortic valve stenosis I35.0 Cardiac valve disease etiology: nonrheumatic Elevated troponin R79.89 PADRON (dyspnea on exertion) R06.09 Foot pain, bilateral M79.671; M79.672
== END 2024-02-15 15:43 | disposition home or self-care (01) | DRG 310 ==
LOC: ED 11:46 → EDINP 14:59 → SUATTDRO 14:59 → 2S 16:55